=== PATIENT | male | born 1945 | race Two or more races ===

== ENCOUNTER 2019-11-29 06:00 | Day surgery (SDC) | payer OTHER ==
[~2019-11-29 06:00] MED LIST: FARXIGA5 MG PO; LANTUS; LOSART PO; ZOLOFT100 MG PO
== END 2019-11-29 11:10 | disposition home or self-care (01) ==
LOC: CIR.AMB 06:00
PROVIDERS: ATTEND Orthopaedic Surgery Hand Surgery
DX: G56.01 Carpal tunnel syndrome, right upper limb (principal); Z20.828 Contact with and (suspected) exposure to other viral communicable diseases